=== PATIENT | male | born 1985 | race Caucasian/White ===

== ENCOUNTER 2016-11-08 14:46 | Emergency (ER) | payer MEDICAID ==
[~2016-11-08] VITALS: Ht 162.6 cm; Wt 82.5 kg
[~2016-11-08 14:46] MED LIST: HYDR-3498 PO; IBUP-1542 PO
[2016-11-08 14:48] VITALS: Ht 162.6 cm; Wt 82.5 kg
--- NOTE | 2016-11-08 15:16 | ERD ---
ER Documentation Chief Complaint Date/Time DATE: 11/08/16 TIME: 15:09 Chief Complaint PALPITATIONS X 1 HOUR AGO HPI 30-year-old male who presents to the emergency department for palpitations and chest discomfort 1 hour prior to arrival here in the emergency department. Stated that this started while he was driving. Chest discomfort was nonradiating. Denies headache, loss of consciousness, dizziness, blurry vision, changes in vision, photophobia, facial pain, ear pain, throat pain, difficulty swallowing, neck pain, shoulder pain, cough, hemoptysis, abdominal pain, back pain, loss of appetite, nausea, vomiting, hematochezia, diarrhea, constipation, urinary symptoms, bladder and bowel incontinences, extremity weakness, extremity tenderness, numbness or tingling sensation, difficulty walking, recent travel, recent exposure to illness, recent antibiotic use in the last 3 months, fever, chills, stressors, clammy skin. Denies visual/auditory hallucination/delusion. Not homicidal. Not suicidal. Has the capacity to decide for himself. Lives with family. Has good support system at home. Allergy: No known drug allergies. PMH: Denies. Medications: Denies. Surgery: Denies. Family history: Denies family history of cardiac before the age of 50, stroke. Primary Social History: Works as a manager graphic. Denies smoking, use of alcohol, use of illegal drugs. ROS All systems reviewed and are negative except as per history of present illness. Medications Home Meds Active Scripts Lorazepam* (Lorazepam*) 1 Mg Tablet, 1 MG PO Q8, #10 TAB Prov:JUANITA DWYER 11/08/16 Hydrocodone Bit-Acetaminophen* ([place]*) 5-325 Mg Tab, 1 TAB PO Q6 Y for PAIN, # 20 TAB Prov:EBONI MARTINEZ PA-C 11/13/15 Ibuprofen* (Motrin*) 600 Mg Tab, 600 MG PO Q6H Y for PAIN AND OR ELEVATED TEMP, #30 TAB Prov:EBONI MARTINEZ PA-C 11/13/15 Allergies Allergies: Coded Allergies: No Known Drug Allergies (Verified Allergy, 07/22/13) PMhx/Soc History of Surgery: No Anesthesia Reaction: No Hx Neurological Disorder: No Hx Respiratory Disorders: No Hx Cardiac Disorders: No Hx Psychiatric Problems: No Hx Miscellaneous Medical Probl: No Hx Alcohol Use: No Hx Substance Use: No Hx Tobacco Use: No Physical Exam Vitals Vital Signs Date Time Temp Pulse Resp B/P Pulse Ox O2 Delivery O2 Flow Rate FiO2 11/08/16 16:16 98.0 95 18 123/71 98 11/08/16 14:48 97.7 110 18 132/76 97 Physical Exam CONSTITUTIONAL: Well-appearing; well-nourished; in no apparent distress. HEAD: Normocephalic; atraumatic. EYES: Conjunctiva clear, sclera non-icteric, EOM intact. PERRL Ears: Hearing intact. EACs clear, TMs non-bulging, non-inflamed, translucent & mobile, ossicles normal appearance, No obstructions, no erythema, no discharges Nose: No obstructions. No polyps. No external lesions. Mucosa non-inflamed. No external lesions, septum and turbinates normal. No rhinorrhea. No discharges. Frontal sinus is non-tender to palpation. Maxillary sinus is non-tender to palpation. MOUTH: Moist mucous membranes, no lesion, no obstructions, no vesicles, no thrush, patent airway Throat: Uvula in midline. Right tonsil is +1 with no erythema, no exudate. Left tonsil is +1 with no erythema, no exudate. Tolerating secretions well. Good gag reflex. Patent airway. Neck: Supple, without lesions, bruits, or adenopathy. No mass. Thyroid non- enlarged and non-tender to palpation. CHEST: Symmetrical chest. Respirations even and not labored. No retractions noted. CARDIOVASCULAR: Normal S1, S2. RRR. No murmurs, gallops. RESPIRATORY: Normal chest excursion with respiration; breath sounds clear and equal bilaterally; no wheezes, rhonchi, or rales. Breathing even and unlabored. Speaking in clear, full, and complete sentences w/ ease. ABDOMEN: Normal bowel sounds normal. Soft, round, non-distended, non-guarding, no tenderness, no rebound, no organomegaly, no masses, no pulsating abdominal mass. No hernia. No peritoneal signs. : No CVA tenderness. BACK: Symmetrical shoulder. Spine is midline without deformity, tenderness. No evidence of trauma or deformity. PELVIS: Stable pelvis. No evidence of trauma or deformity. MUSCULOSKELETAL: Normal gait and station. No misalignment, asymmetry, crepitation, defects, tenderness, masses, effusions, decreased range of motion, instability, atrophy or abnormal strength or tone in the head, neck, spine, ribs , pelvis or extremities. No calf tenderness. NEUROVASCULAR: Distal pulses are present. Pedal pulse are present, equal, and normal. Capillary refills are < 2 seconds. NEUROLOGIC: Alert and oriented x4. Speaks full and clear sentences. Cranial Nerves II-XII normal. Sensation to pain, touch, and proprioception normal. Grossly unremarkable. No neurologic deficits. Romberg test is negative. PSYCHOLOGICAL: The patients mood and manner are appropriate. No hallucinations , delusions. Not SI. Not HI. Has the capacity to decide for self SKIN: Normal for age and ethnicity; warm; dry; good turgor; no apparent lesions or exudates. No rashes, hives, discoloration. Intact. Results 24 hrs Current Medications Medications (Trade) Dose Ordered Sig/Bruce Route PRN Reason Start Time Stop Time Status Last Admin Dose Admin Lorazepam (Ativan) 2 mg ONCE ONCE PO 11/08/16 15:30 11/08/16 15:31 DC 11/08/16 15:17 Procedures/MDM Examination: Please see physical examination. Disease process, medical treatment was explained to the patient and family member. They verbalized understanding and agreed with the diagnostic tests, medical treatment, and follow-up care. EKG: Sinus tachycardia with a ventricular rate of 115 bpm. No evidence of acute myocardial infarction. Treatment: Ativan 2 mg by mouth 1. Re-evaluation: Denies headache, dizziness, blurry vision, neck pain, shoulder pain, chest pain, back pain, abdominal pain, nausea, vomiting. No episode of emesis in the emergency department. Alert and oriented 4. Speaks full and clear sentences. Respirations even and unlabored. Lung sounds clear to auscultation. Active bowel sounds. There is no right upper/right lower/ epigastric/left upper/left lower abdominal tenderness and light and deep palpation. Negative on Rovsings sign. Negative Radha sign. Able to jump 5 times without developing right-sided abdominal pain. No peritoneal signs. Alert and oriented 4. Speaks full and clear sentences. Respirations even and unlabored. Lung sounds clear to auscultation. Ambulatory with steady gait. No neurovascular deficits. No neurological deficits. Denies visual/auditory hallucination/delusion. Not homicidal. Not suicidal. Has the capacity to decide for himself. Lives with family. Has good support system at home. Consultation: None. Differential diagnosis: Acute myocardial infarction versus acute coronary syndrome versus atrial fibrillation versus anxiety Medical decision makin-year-old male who presents to the emergency department for palpitations and chest discomfort 1 hour prior to arrival here in the emergency department. Stated that this started while he was driving. Chest discomfort was nonradiating. Patient's complaint, patient's history about his complaint, my physical findings, diagnostic test results, my reevaluation are consistent with my final diagnosis of anxiety. Stated that he will call his girlfriend to pick him up upon discharge. Medications prescribed are the following: Ativan. Educated that this medication will make him drowsy. Instructed not to drive or operate any machinery, and her signing any documents if he has taken this medication. He verbalized understanding. Patient and family member are made aware of the side effects and adverse reactions of the medications prescribed. Instructed on when to seek emergent and medical attention in case allergic/anaphylactic reactions or severe side effects and or adverse reactions to medications. Patient and family member verbalized understanding. Patient instructed Instructed to follow-up with his PCP in 24-48 hours. Instructed to Call 911 for chest pain, shortness of breath. Advised to come back here in ED as soon as possible for severity of symptoms which includes but not limited to: any new symptoms; shortness of breath/difficulty of breathing; cardiovascular changes; severe gastrointestinal symptoms; signs and symptoms of bleeding and or infection; signs of compartment syndrome/neurovascular changes; neurological changes/deficits. Patient and family member verbalized understanding. Upon discharge, patient is alert and oriented x 4, speaks full and clear sentences, denies pain, has no neurological deficits, has no neurovascular deficits, difficulty of breathing. Breathing even and unlabored. Lung sounds are clear to auscultation. Not in distress. Appears comfortable. Ambulatory with steady gait. Appears satisfied with care provided here in ED. Denies visual /auditory hallucination/delusion. Not homicidal. Not suicidal. Has the capacity to decide for himself. Lives with family. Has good support system at home. Departure Diagnosis: Primary Impression: Anxiety Condition: Good Additional Instructions: Instructed to follow-up with his PCP in 24-48 hours. Instructed to Call 911 for chest pain, shortness of breath. Advised to come back here in ED as soon as possible for severity of symptoms which includes but not limited to: any new symptoms; shortness of breath/difficulty of breathing; cardiovascular changes; severe gastrointestinal symptoms; signs and symptoms of bleeding and or infection; signs of compartment syndrome/neurovascular changes; neurological changes/deficits. Patient and family member verbalized understanding. JUANITA DWYER Nov 08, 2016 15:16
[2016-11-08] MEDS ORDERED: LORAZEPAM 1 MG TAB PO ONE (15:30)
[2016-11-08] MEDS ORDERED: LORA1TAB PO (15:42)
[2016-11-08 16:16] VITALS: BP 123/71; PULSE 95; RESP 18; TEMP 98
== END 2016-11-08 16:20 | disposition home or self-care (01) ==
LOC: FTE 14:46
DX: F41.9 Anxiety disorder, unspecified (principal)
CPT/HCPCS: 93005

== ENCOUNTER 2017-03-18 23:07 | Emergency (ER) | END 2017-03-19 01:36 | disposition home or self-care (01) | DX: F41.9 Anxiety disorder, unspecified (principal); R40.2252 Coma scale, best verbal response, oriented, at arrival to emergency department | CPT/HCPCS: 71010; 93005; Z7502; Z7610 ==

== ENCOUNTER 2017-03-28 17:18 | Emergency (ER) | payer MEDICAID ==
[~2017-03-28] VITALS: Ht 165.1 cm; Wt 79.0 kg
[~2017-03-28 17:18] MED LIST changes: +LORA1TAB PO
[2017-03-28 17:20] VITALS: Ht 165.1 cm; Wt 79.0 kg
--- NOTE | 2017-03-28 18:44 | ERD ---
ER Documentation Chief Complaint Chief Complaint CHEST PAIN, PALPITATION STARTED TODAY HPI 31-year-old male presents here to emergency department for complaints of chest pain palpitations on and off for 1 week, worse today. Patient describes the pain as sharp pain, 6/10 scale, not better or worse with anything. Patient denies any dyspnea on exertion or dyspnea on lying down. Patient does not have any shortness of breath or wheezing. ROS All systems reviewed and are negative except as per history of present illness. Medications Home Meds Active Scripts Tramadol HCl (Tramadol HCl) 50 Mg Tablet, 50 MG PO Q6 Y for SEVERE PAIN LEVEL 7- 10, #20 TAB Prov:MIKE KOHLER FLUME MAKER 03/28/17 Acetaminophen* (Tylophen*) 500 Mg Capsule, 1 CAP PO Q6H Y for PAIN AND OR ELEVATED TEMP, #20 CAP Prov:MIKE KOHLER [employer]UME [employer]ER 03/28/17 Lorazepam* (Lorazepam*) 1 Mg Tablet, 1 MG PO Q8, #10 TAB Prov:JUANITA DWYER 11/08/16 Hydrocodone Bit-Acetaminophen* ([place]*) 5-325 Mg Tab, 1 TAB PO Q6 Y for PAIN, # 20 TAB Prov:EBONI MARTINEZ PA-C 11/13/15 Ibuprofen* (Motrin*) 600 Mg Tab, 600 MG PO Q6H Y for PAIN AND OR ELEVATED TEMP, #30 TAB Prov:EBONI MARTINEZ PA-C 11/13/15 Allergies Allergies: Coded Allergies: No Known Drug Allergies (Verified Allergy, 07/22/13) PMhx/Soc History of Surgery: No Anesthesia Reaction: No Hx Neurological Disorder: No Hx Respiratory Disorders: No Hx Cardiac Disorders: No Hx Psychiatric Problems: No Hx Miscellaneous Medical Probl: Yes (ANXIETY) Hx Alcohol Use: No Hx Substance Use: No Hx Tobacco Use: No FmHx Family History: No coronary disease, No diabetes, No other Physical Exam Vitals Vital Signs Date Time Temp Pulse Resp B/P Pulse Ox O2 Delivery O2 Flow Rate FiO2 03/28/17 17:20 97.4 83 18 138/79 100 Physical Exam GENERAL: The patient is well developed and appropriate for usual state of health, in no apparent distress. CHEST: Clear to auscultation bilaterally. There are no rales, wheezes or rhonchi. HEART: Regular rate and rhythm. No murmurs, clicks, rubs or gallops. No S3 or S4. ABDOMEN: Soft, nontender and nondistended. Good bowel sounds. No rebound or guarding. No gross peritonitis. No gross organomegaly or masses. No Valverde sign or McBurney point tenderness. BACK: No midline or flank tenderness. EXTREMITIES: Equal pulses bilaterally. There is no peripheral clubbing, cyanosis or edema. No focal swelling or erythema. Full range of motion. Grossly neurovascularly intact. NEURO: Alert and oriented. Cranial nerves 2-12 intact. Motor strength in all 4 extremities with 5/5 strength. Sensation grossly intact. Normal speech and gait. SKIN: There is no apparent rash or petechia. The skin is warm and dry. HEMATOLOGIC AND LYMPHATIC: There is no evidence of excessive bruising or lymphedema. No gross cervical, axillary, or inguinal lymphadenopathy. Result Diagram: 03/28/17183403/28/175 Results 24 hrs Laboratory Tests Test 03/28/17 18:35 White Blood Count 7.710^3/ul Red Blood Count 5.3010^6/ul Hemoglobin 16.6g/dl Hematocrit 48.4% Mean Corpuscular Volume 91.3fl Mean Corpuscular Hemoglobin 31.3pg Mean Corpuscular Hemoglobin Concent 34.3g/dl Red Cell Distribution Width 12.8% Platelet Count 56148^3/UL Mean Platelet Volume 10.6fl Neutrophils % 66.7% Lymphocytes % 25.9% Monocytes % 5.9% Eosinophils % 0.9% Basophils % 0.5% Nucleated Red Blood Cells % 0.0/100WBC Neutrophils # 5.110^3/ul Lymphocytes # 2.010^3/ul Monocytes # 0.510^3/ul Eosinophils # 0.110^3/ul Basophils # 0.010^3/ul Nucleated Red Blood Cells # 0.010^3/ul Sodium Level 141mmol/L Potassium Level 3.9mmol/L Chloride Level 104mmol/L Carbon Dioxide Level 29mmol/L Anion Gap 12 Blood Urea Nitrogen 9mg/dl Creatinine 0.88mg/dl Glucose Level 98mg/dl Calcium Level 9.7mg/dl Troponin I < 0.012ng/ml EKG was done, read by me and is normal sinus rhythm at a rate of 81, normal axis , there is no ST changes or changes in the EKG that indicates any cardiac emergencies at this time. Patient's EKG was also reviewed by Dr. Arevalo. Impression: no acute findings on EKG PROCEDURE: Portable chest x-ray. CLINICAL INDICATION: 31-year of age, male. Chest pain TECHNIQUE: Portable AP view of the chest. COMPARISON: March 19, 2017 FINDINGS: Cardiomediastinal contours are normal. Lungs are clear. Negative for pleural effusion or pneumothorax. No acute bony abnormality. Additional comment: None. IMPRESSION: Negative for evidence of an acute chest process. RPTAT: HCTS Physician Octaviano Date Time Electronically viewed and signed by Larry Nina Physician on 03/28/2017 19: 27 CS/ CC: MIKE KOHLER NP Procedures/MDM Medical Decision Makin-year-old male presents here to emergency department for chest pain and palpitations, most likely this is consistent with anxiety. There is low suspicion for cardiopulmonary emergencies at this time. Patient has low risk factors. EKG is normal, there is no changes in the EKG that indicates cardiac emergencies. Chest X-ray does not show cardiopulmonary emergencies at this time. There is low suspicion for aortic aneurysm, myocardial infarction, pneumothorax, pleural effusion, pulmonary embolism, or any other cardiopulmonary emergencies at this time. Cardiac markers are normal. Prescription was advised to follow-up with primary care doctor 1 to days for reevaluation of symptoms. Patient was advised to return to emergency department for any worsening symptoms. Rx: tylenol, tramadol Dispostion: Home. Stable Disclaimer: Inadvertent spelling and grammatical errors are likely due to EHR/ dictation software use and do not reflect on the overall quality of patient care. Also, please note that the electronic time recorded on this note does not necessarily reflect the actual time of the patient encounter. Departure Diagnosis: Primary Impression: Palpitations Condition: Stable Patient Instructions: Palpitations MIKE KOHLER NP Mar 28, 2017 18:44
[2017-03-28 18:58] LABS: BASOPHILS % 0.5 % (0.0-2.0); EOSINOPHILS # 0.1 10^3/ul (0.0-0.5); EOSINOPHILS % 0.9 % (0.0-7.0); HEMATOCRIT 48.4 % (42.0-52.0); HEMOGLOBIN 16.6 g/dl (14.0-18.0); LYMPHOCYTES % 25.9 % (15.0-51.0); MEAN CORPUSCULAR HEMOGLOBIN 31.3 pg (29.0-33.0); MEAN CORPUSCULAR HGB CONC 34.3 g/dl (32.0-37.0); MEAN CORPUSCULAR VOLUME 91.3 fl (82.0-101.0); MEAN PLATELET VOLUME 10.6 fl (7.4-10.4); MONOCYTE # 0.5 10^3/ul (0.3-0.9); MONOCYTES % 5.9 % (0.0-11.0); NEUTROPHIL # 5.1 10^3/ul (1.6-7.5); NEUTROPHILS % 66.7 % (39.0-77.0); PLATELET COUNT 234 10^3/UL (140-415); RED CELL DISTRIBUTION WIDTH 12.8 % (11.5-14.5); WHITE BLOOD COUNT 7.7 10^3/ul (4.8-10.8)
[2017-03-28 19:16] LABS: ANION GAP 12 (8-16); BLOOD UREA NITROGEN 9 mg/dl (7-20); CALCIUM 9.7 mg/dl (8.4-10.2); CARBON DIOXIDE 29 mmol/L (21-31); CHLORIDE 104 mmol/L (97-110); CREATININE 0.88 mg/dl (0.61-1.24); GLUCOSE 98 mg/dl (70-220); POTASSIUM 3.9 mmol/L (3.5-5.1); SODIUM 141 mmol/L (135-144)
--- NOTE | 2017-03-28 19:28 | RADRPT ---
PROCEDURE: Portable chest x-ray. CLINICAL INDICATION: 31-year of age, male. Chest pain TECHNIQUE: Portable AP view of the chest. COMPARISON: March 19, 2017 FINDINGS: Cardiomediastinal contours are normal. Lungs are clear. Negative for pleural effusion or pneumothorax. No acute bony abnormality. Additional comment: None. IMPRESSION: Negative for evidence of an acute chest process. RPTAT: HCTS Physician Octaviano Date Time Electronically viewed and signed by Larry Nina Physician on 03/28/2017 19:27 CS/
[2017-03-28 19:31] LABS: TROPONIN-I < 0.012 ng/ml (0.00-0.12)
[2017-03-28] MEDS ORDERED: TRAM50TA2 PO (19:45)
[2017-03-28] MEDS ORDERED: ACET500C5 PO (19:45)
== END 2017-03-28 20:12 | disposition home or self-care (01) ==
LOC: FTE 17:18
DX: R00.2 Palpitations (principal); R07.9 Chest pain, unspecified
CPT/HCPCS: 71010; 80048; 84484; 85025; 93005; Z7502

== ENCOUNTER 2017-09-19 17:23 | Emergency (ER) | END 2017-09-19 19:52 | disposition home or self-care (01) ==

== ENCOUNTER 2017-11-09 21:03 | Emergency (ER) | END 2017-11-10 00:28 | disposition home or self-care (01) ==

== ENCOUNTER 2018-01-12 00:49 | Emergency (ER) | END 2018-01-12 05:46 | disposition home or self-care (01) ==

== ENCOUNTER 2018-01-24 23:04 | Emergency (ER) | END 2018-01-25 03:12 | disposition home or self-care (01) ==

== ENCOUNTER 2018-07-01 10:26 | Emergency (ER) | payer MEDICAID ==
[~2018-07-01] VITALS: Ht 167.6 cm; Wt 85.5 kg
[~2018-07-01 10:26] MED LIST changes: +CIPR500T4 PO; +CLOT30CR24 TOP; -HYDR-3498 PO; -LORA1TAB PO; +METR500T PO; +TRAM50TA2 PO
[2018-07-01 10:29] VITALS: Ht 167.6 cm; Wt 85.5 kg
[2018-07-01] MEDS ORDERED: AZITHROMYCIN 250 MG TAB PO ONE (12:00)
[2018-07-01] MEDS ORDERED: CEFTRIAXONE 250 MG INJ IM ONE (12:00)
[2018-07-01] MEDS ORDERED: LIDOCAINE 1% (MPF) 5 ML VIAL INJ ONE (12:00)
[2018-07-01] MEDS ORDERED: CLOT30CR24 TOP (13:34)
--- NOTE | 2018-07-01 20:34 | ERD ---
ER Documentation Chief Complaint Chief Complaint pt is bib self with c/o left sided abd pain starting 4 days ago HPI 32-year-old male patient with no significant past medical history presents to ED complaining of left-sided, 3 days ago. Patient reports that this is similar pain that he expires last year. Reports that when he has sexual intercourse, he has some dry fissures. Reports that he does not want a exam and just wants the clotrimazole cream that worked for him last year. Denies any fever, chills, nausea, vomiting, diarrhea, neck stiffness, scrotal pain, penile discharge. Patient reports that he is also concerned for chlamydia because his ex- girlfriend told him that she had chlamydia. The last time that they had sexual intercourse was, last week, unprotected. ROS All systems reviewed and are negative except as per history of present illness. Medications Home Meds Active Scripts Clotrimazole* (Clotrimazole* AF) 1% - 30 Gm Cream.gm., 1 APPLIC TOP BID for 7 Days, TUB Prov:USHA WRIGHT PA-C 07/01/18 Clotrimazole* (Clotrimazole* AF) 1% - 30 Gm Cream.gm., 1 APPLIC TOP BID for 7 Days, TUB Prov:MIKE KOHLER NP 01/25/18 Ibuprofen* (Motrin*) 600 Mg Tab, 600 MG PO Q6H PRN for PAIN AND OR ELEVATED TEMP, #30 TAB Prov:MIKE KOHLER NP 01/25/18 Tramadol HCl (Tramadol HCl) 50 Mg Tablet, 50 MG PO Q4 PRN for PAIN, #20 TAB Prov:MOE CORONADO. 01/12/18 Metronidazole* (Flagyl*) 500 Mg Tablet, 500 MG PO TID for 5 Days, TAB Prov:MOE CORONADO SMehran 01/12/18 Ciprofloxacin Hcl* (Ciprofloxacin Hcl*) 500 Mg Tablet, 500 MG PO BID for 5 Days, TAB Prov:MOE CORONADO S. 01/12/18 Allergies Allergies: Coded Allergies: No Known Drug Allergies (Unverified Allergy, Unknown, 01/12/18) PMhx/Soc Medical and Surgical Hx: pt denies Surgical Hx History of Surgery: No Anesthesia Reaction: No Hx Neurological Disorder: No Hx Respiratory Disorders: No Hx Cardiac Disorders: No Hx Psychiatric Problems: No Hx Miscellaneous Medical Probl: Yes (ANXIETY) Hx Alcohol Use: No Hx Substance Use: No Hx Tobacco Use: No FmHx Family History: No diabetes, No coronary disease Physical Exam Vitals Vital Signs Date Temp Pulse Resp B/P (MAP) Pulse Ox O2 O2 Flow FiO2 Time Delivery Rate 07/01/18 97.0 88 18 142/66 96 10:29 (91) Physical Exam Const: [id number], well-nourished. In no acute distress. Head: Atraumatic, normocephalic Eyes: Normal Conjunctiva without injection. No purulent discharge. ENT: Normal external ear, nose. Moist oropharynx without tonsillar exudates. Non-erythematous pharynx. Uvula midline. No drooling. No trismus. Neck: No cervical midline tenderness. Full range of motion. No meningismus. No cervical lymphadenopathy. No JVD. Resp: Clear to auscultation bilaterally. No wheezing, rhonchi, rales, or crackles. No accessory muscle use. No retractions. Cardio: Regular rate and rhythm. No murmurs, rubs or gallops. Abd: Soft, left lower quadrant tenderness, non distended. Normal bowel sounds. No palpable masses. No rebound tenderness. No guarding. Negative McBurney's point. Negative psoas sign. Negative obturator sign. : Deferred Skin: No petechiae or rashes Back: No midline tenderness. No CVA tenderness. Ext: No cyanosis, or edema. Neur: Awake and alert. Normal gait. Normal coordination. Psych: Normal Mood and Affect Results 24 hrs Laboratory Tests Test 07/01/18 12:12 White Blood Count 5.5 10^3/ul Red Blood Count 5.65 10^6/ul Hemoglobin 17.0 g/dl Hematocrit 50.5 % Mean Corpuscular Volume 89.4 fl Mean Corpuscular Hemoglobin 30.1 pg Mean Corpuscular Hemoglobin Concent 33.7 g/dl Red Cell Distribution Width 12.6 % Platelet Count 267 10^3/UL Mean Platelet Volume 10.5 fl Immature Granulocytes % 0.200 % Neutrophils % 50.3 % Lymphocytes % 33.3 % Monocytes % 7.8 % Eosinophils % 7.3 % Basophils % 1.1 % Nucleated Red Blood Cells % 0.0 /100WBC Immature Granulocytes # 0.010 10^3/ul Neutrophils # 2.8 10^3/ul Lymphocytes # 1.8 10^3/ul Monocytes # 0.4 10^3/ul Eosinophils # 0.4 10^3/ul Basophils # 0.1 10^3/ul Nucleated Red Blood Cells # 0.0 10^3/ul Urine Color YELLOW Urine Clarity CLEAR Urine pH 7.0 Urine Specific [place] 1.019 Urine Ketones NEGATIVE mg/dL Urine Nitrite NEGATIVE mg/dL Urine Bilirubin NEGATIVE mg/dL Urine Urobilinogen NEGATIVE mg/dL Urine Leukocyte Esterase NEGATIVE Brian/ul Urine Hemoglobin NEGATIVE mg/dL Urine Glucose NEGATIVE mg/dL Urine Total Protein NEGATIVE mg/dl Sodium Level 139 mmol/L Potassium Level 4.2 mmol/L Chloride Level 104 mmol/L Carbon Dioxide Level 27 mmol/L Anion Gap 8 Blood Urea Nitrogen 10 mg/dl Creatinine 0.75 mg/dl Est Glomerular Filtrat Rate mL/min > 60 mL/min Glucose Level 98 mg/dl Calcium Level 9.6 mg/dl Total Bilirubin 0.3 mg/dl Direct Bilirubin 0.00 mg/dl Indirect Bilirubin 0.3 mg/dl Aspartate Amino Transf (AST/SGOT) 39 IU/L Alanine Aminotransferase (ALT/SGPT) 70 IU/L Alkaline Phosphatase 85 IU/L Total Protein 8.3 g/dl Albumin 4.6 g/dl Globulin 3.70 g/dl Albumin/Globulin Ratio 1.24 Lipase 84 U/L Chlamydia trachomatis RNA (TMA) NOT DETECTED Chlamydia/GC Comment SEE NOTE Neisseria gonorrhoeae RNA (TMA) NOT DETECTED Current Medications Medications Dose Sig/Bruce Start Time Status Last (Trade) Ordered Route PRN Stop Time Admin Dose Reason Admin Ceftriaxone 250 mg ONCE ONCE 07/01/18 DC 07/01/18 Sodium IM 12:00 12:20 (Rocephin) 07/01/18 12:01 1,000 mg ONCE ONCE 07/01/18 DC 07/01/18 Azithromycin PO 12:00 12:20 (Zithromax) 07/01/18 12:01 Lidocaine 5 ml ONCE ONCE 07/01/18 DC 07/01/18 (Xylocaine INJ 12:00 12:20 1% (Mpf)) 07/01/18 12:01 Procedures/MDM 32-year-old male patient with no significant past medical history presents to ED complaining of left lower abdominal pain that started about 4 days ago. Patient is up-to-date with his vaccinations. Patient was further worked up with CBC, CMP, lipase, UA. Patient was concerned for chlamydia, patient will be treated here in the ED with azithromycin, 250 mg ceftriaxone IM. CBC: No leukocytosis. No e/o of systemic infection. No e/o anemia. CMP: No e/o severe acidosis, alkalosis, renal failure, diabetic ketoacidosis, liver disease Lipase within normal limits. Urine: No leukocyte esterase, no nitrites, no hematuria. Reports that the fissures were similar to what he has had last year of the penis, and requested for clotrimazole therefore I will be prescribed patient. Patient deferred his exam. No Leukocytosis. No indication for CT of the abdomen without contrast as patient's pain is similar to last year. The risks of radiation outweigh the benefits. Low suspicion for testicular torsion, gastritis, GERD, peptic ulcer disease, cholecystitis, choledocholithiasis, cholangitis, pancreatitis, appendicitis, bowel obstruction, ileus, volvulus, nephrolithiasis, pyelonephritis, hepatitis, perforated viscus, diverticulitis, abdominal hernia, acute abdomen, mesenteric ischemia or other emergent conditions. Diagnosis: Abdominal pain, Encounter for Medication Refill Discharge medications: Clotrimazole Follow up with primary care physician in 1-2 days for referral to tool repair technician as well as full STD work up. Instructed patient to return to the ED sooner for any worsening symptoms. Patient's questions were answered. Dominick vela understood and agreed with discharge plan. Patient discharged stable. Departure Diagnosis: Primary Impression: Abdominal pain Abdominal location: unspecified location Qualified Codes: R10.9 - Unspecified abdominal pain Condition: Stable Patient Instructions: Abdominal Pain, If You Think You Have an STD, Fungal Infection, Skin [General] Referrals: COMMUNITY CLINICS YOU HAVE RECEIVED A MEDICAL SCREENING EXAM AND THE RESULTS INDICATE THAT YOU DO NOT HAVE A CONDITION THAT REQUIRES URGENT TREATMENT IN THE EMERGENCY DEPARTMENT. FURTHER EVALUATION AND TREATMENT OF YOUR CONDITION CAN WAIT UNTIL YOU ARE SEEN IN YOUR DOCTORS OFFICE WITHIN THE NEXT 1-2 DAYS. IT IS YOUR RESPONSIBILITY TO MAKE AN APPOINTMENT FOR FOLOW-UP CARE. IF YOU HAVE A PRIMARY DOCTOR --you should call your primary doctor and schedule an appointment IF YOU DO NOT HAVE A PRIMARY DOCTOR YOU CAN CALL OUR PHYSICIAN REFERRAL HOTLINE AT IF YOU CAN NOT AFFORD TO SEE A PHYSICIAN YOU CAN CHOSE FROM THE FOLLOWING [facility] CLINICS [facility] [address] [facility] [address] [facility] [address] [facility] [address] [facility] [address] [facility]. [facility] [address] [facility]. [facility] YOU HAVE RECEIVED A MEDICAL SCREENING EXAM AND THE RESULTS INDICATE THAT YOU DO NOT HAVE A CONDITION THAT REQUIRES URGENT TREATMENT IN THE EMERGENCY DEPARTMENT. FURTHER EVALUATION AND TREATMENT OF YOUR CONDITION CAN WAIT UNTIL YOU ARE SEEN IN YOUR DOCTORS OFFICE WITHIN THE NEXT 1-2 DAYS. IT IS YOUR RESPONSIBILITY TO MAKE AN APPOINTMENT FOR [facility] CARE. IF YOU HAVE A PRIMARY DOCTOR --you should call your primary doctor and schedule and appointment IF YOU DO NOT HAVE A PRIMARY DOCTOR YOU CAN CALL OUR PHYSICIAN REFERRAL HOTLINE AT . IF YOU CAN NOT AFFORD TO SEE A PHYSICIAN YOU CAN CHOSE FROM THE FOLLOWING COMM[facility]ITY [facility] INSTITUTIONS: [facility] [address] [place] [address] [facility] [address] [place] [address] [facility] [address] [place] [address] [facility]/SPECIALTIES ORDER PL[place] [id number] [facility] [address] [place], [place] [phone] OFFICE [address]ABUSLEME LIBERTAD [address] [place] [address] [facility] [address] [place] [place] [phone] [address] [facility], [address] [id number]ARDALES, [facility] [address] [facility] [place], [place] [phone] [facility] [address] [place] [address] [address] [facility] [id number] - DR MARADIAGA ROYA [address], [facility] [phone] MELVIN, [place] [address] [facility]. [address], [facility] [address] [address] ZAVALA, [facility] [address] [place], [place] [phone] [facility] Hours: 8:00 am - 5:00 pm Additional Instructions: Call your primary care doctor TOMORROW for an appointment for STD testing or [facility]. No sex until cleared by doctor. See the doctor sooner or return here if your condition worsens before your appointment time. USHA WRIGHT PA-C Jul 01, 2018 20:34
== END 2018-07-01 13:51 | disposition home or self-care (01) ==
LOC: FTE 10:26
DX: R10.9 Unspecified abdominal pain (principal)
CPT/HCPCS: 80053; 81003; 83690; 85025; 87591; J0696; Z7610; 36415; 96372